=== PATIENT | female | born 1955 | race Caucasian/White ===

== ENCOUNTER 2017-06-12 09:02 | Emergency (ER) | payer OTHER | END 2017-06-12 12:28 | disposition home or self-care (01) | LOC: D.ER 09:02 | DX: S87.82XA Crushing injury of left lower leg, initial encounter (principal); V09.9XXA Pedestrian injured in unspecified transport accident, initial encounter; Y93.89 Activity, other specified; Y92.89 Other specified places as the place of occurrence of the external cause; S80.12XA Contusion of left lower leg, initial encounter ==